=== PATIENT | male | born 1990 | race Caucasian/White ===

== ENCOUNTER 2018-02-08 16:04 | Emergency (ER) | payer OTHER, SELFPAY ==
--- NOTE | 2018-02-08 18:23 | RAD REPORT ---
EXAM DESCRIPTION: CT - Facial Bones W/ Mpr - 02/08/2018 5:59 pm CLINICAL HISTORY: Facial injury. Hit teeth on golf cart COMPARISON: None TECHNIQUE: Computed axial tomography of the face was obtained. Coronal and sagittal reconstruction w as performed. All CT scans are performed using dose optimization technique as appropriate and may include automated exposure control or mA/KV adjustment according to patient size. FINDINGS: Fractures involve the anterior wall of the alveolar process of the first and second right maxillary teeth. The teeth are dislodged anteriorly. The first right maxillary tooth is fractured A lucency within the first left maxillary tooth probably represents a cavity A TMJ dislocation is not noted. The globes are intact. Fluid within the sinuses is not seen. IMPRESSION: Fractures involve the anterior wall of the alveolar process of the first and second righ t maxillary teeth. The teeth are dislodged anteriorly. The first right maxillary tooth is fractured
--- NOTE | 2018-02-08 18:38 | ER ---
Nurse's Notes [facility] Name: Tyrone Wolf Age: 27 yrs Sex: Male : 1990 Arrival Date: 02/08/2018 Time: 16:07 Bed 23 Private MD: Diagnosis: Fractured alveolar ridge and teeth, facial trauma Presentation: 02/08 16:09 Presenting complaint: Patient states: i hit the back of a golf cart about 40 mins ago hj and knocked my front teeth; denies LOC; denies bleeding disorders;. Transition of care: patient was not received from another setting of care. Onset of symptoms was February 08, 2018. Care prior to arrival: None. 16:09 Method Of Arrival: Ambulatory 16:09 Acuity: SAHIL 4 hj Triage Assessment: 16:10 General: Appears in no apparent distress. uncomfortable, Behavior is calm, cooperative, hj appropriate for age. Pain: Complains of pain in mouth. Historical: - Allergies: 16:10 No Known Allergies; hj - Home Meds: 16:10 None [Active]; hj - PMHx: 16:10 None; hj - PSHx: 16:10 None; hj - Immunization history:: Adult Immunizations unknown. - Social history:: Smoking status: Patient/guardian denies using tobacco. Screenin:39 Abuse screen: Denies threats or abuse. Denies injuries from another. Nutritional kr2 screening: No deficits noted. Tuberculosis screening: No symptoms or risk factors identified. Fall Risk None identified. Assessment: 18:34 General: Appears in no apparent distress. uncomfortable, well groomed, well developed, kr2 well nourished, Behavior is calm, cooperative, appropriate for age. Pain: Complains of pain in mouth Pain does not radiate. Pain currently is 10 out of 10 on a pain scale. Quality of pain is described as aching, throbbing, Pain began suddenly, Is continuous, Alleviated by nothing. Neuro: Level of Consciousness is awake, alert, obeys commands, Oriented to person, place, time, situation, Appropriate for age Carpet Or Rug Layer Helper are equal bilaterally Moves all extremities. Gait is steady, Facial symmetry appears normal. Cardiovascular: Capillary refill < 3 seconds in bilateral fingers Patient's skin is warm and dry. Respiratory: Airway is patent Respiratory effort is even, unlabored, Respiratory pattern is regular, symmetrical. GI: Abdomen is flat, non-distended. : No signs and/or symptoms were reported regarding the genitourinary system. EENT: Nares are clear bilaterally broken teeth and deformities to front upper hard palate. Vital Signs: 16:10 BP 141 / 96; Pulse 78; Resp 18; Temp 96.7(TE); Pulse Ox 99% on R/A; Weight 108.86 kg; hj Height 5 ft. 10 in. (177.80 cm); 18:51 BP 136 / 74; Pulse 76; Resp 18; Pulse Ox 99% on R/A; kr2 16:10 Body Mass Index 34.44 (108.86 kg, 177.80 cm) ED Course: 16:07 Patient arrived in ED. mr 16:10 Triage completed. hj 16:10 Arm band placed on right wrist. hj 17:32 Carrie Strickland FNP-C [facility]. snw 17:32 Jennifer Shannon MD is Attending Physician. snw 17:57 CT completed. Patient moved to CT via wheelchair. Patient moved back from CT. cw1 18:15 Kourtney Nur, RN is Primary Nurse. kr2 18:40 Patient has correct armband on for positive identification. Bed in low position. Call kr2 light in reach. Side rails up X 1. Adult w/ patient. Pulse ox on. NIBP on. Door closed. Warm blanket given. Head of bed elevated. Administered Medications: 18:42 Drug: Tylenol #3 (300 mg-30 mg) 1 tablet Route: PO; kr2 18:42 Follow up: Response: Medication administered at discharge. kr2 18:42 Drug: Augmentin 875 mg Route: PO; kr2 18:42 Follow up: Response: Medication administered at discharge. kr2 Outcome: 18:38 Discharge ordered by . snw 18:51 Patient left the ED. kr2 Signatures: Carrie Strickland FNP-C FNP-Champ Ragini Lopez Crystal cw1 Albin Novoa RN RN Kourtney Nur, EDWARD RN kr2 Corrections: (The following items were deleted from the chart) 16:14 16:09 Presenting complaint: Patient states: i hit the back of a golf cart about 40 mins hj ago and knocked my front teeth; hj 16:14 16:09 Acuity: SAHIL 3 hj hj
--- NOTE | 2018-02-08 18:38 | EDPHYS ---
Physician Documentation [facility] Name: Tyrone Wolf Age: 27 yrs Sex: Male : 1990 Arrival Date: 02/08/2018 Time: 16:07 Bed 23 Private MD: ED Physician Jennifer Shannon HPI: 02/08 17:57 This 27 yrs old Male presents to ER via Ambulatory with complaints of Mouth snw Injury. 17:57 The patient presents with broken tooth/teeth. The problem is located in the upper right snw lateral incisor (#7) and upper right cuspid (#6) and upper right first bicuspid (#5). Onset: The symptoms/episode began/occurred suddenly, just prior to arrival. Duration: The symptoms are continuous, and are unchanged since they started. Associated signs and symptoms: The patient has no apparent associated signs or symptoms. Severity of symptoms: At their worst the symptoms were moderate. The patient has not experienced similar symptoms in the past. The patient has not recently seen a physician. Pt states he was pushing a golf cart out of the mud and his feet slipped. Pt fell face first into the cart striking his front teeth. Denies LOC. Denies pain anywhere. Noted gingiva continues to bleed. Historical: - Allergies: 16:10 No Known Allergies; hj - Home Meds: 16:10 None [Active]; hj - PMHx: 16:10 None; hj - PSHx: 16:10 None; hj - Immunization history:: Adult Immunizations unknown. - Social history:: Smoking status: Patient/guardian denies using tobacco. ROS: 17:45 Constitutional: Negative for fever, chills, and weight loss, Eyes: Negative for injury, snw pain, redness, and discharge, Neck: Negative for injury, pain, and swelling, Cardiovascular: Negative for chest pain, palpitations, and edema, Respiratory: Negative for shortness of breath, cough, wheezing, and pleuritic chest pain, Abdomen/GI: Negative for abdominal pain, nausea, vomiting, diarrhea, and constipation, Back: Negative for injury and pain, : Negative for injury, bleeding, discharge, and swelling, MS/Extremity: Negative for injury and deformity, Skin: Negative for injury, rash, and discoloration, Neuro: Negative for headache, weakness, numbness, tingling, and seizure. 17:45 ENT: Positive for dental pain, Teeth pain Exam: 17:42 Constitutional: This is a well developed, well nourished patient who is awake, alert, snw and in no acute distress. Head/Face: Normocephalic, atraumatic. Eyes: Pupils equal round and reactive to light, extra-ocular motions intact. Lids and lashes normal. Conjunctiva and sclera are non-icteric and not injected. Cornea within normal limits. Periorbital areas with no swelling, redness, or edema. Neck: Trachea midline, no thyromegaly or masses palpated, and no cervical lymphadenopathy. Supple, full range of motion without nuchal rigidity, or vertebral point tenderness. No Meningismus. Chest/axilla: Normal chest wall appearance and motion. Nontender with no deformity. No lesions are appreciated. Cardiovascular: Regular rate and rhythm with a normal S1 and S2. No gallops, murmurs, or rubs. Normal PMI, no JVD. No pulse deficits. Respiratory: Lungs have equal breath sounds bilaterally, clear to auscultation and percussion. No rales, rhonchi or wheezes noted. No increased work of breathing, no retractions or nasal flaring. Abdomen/GI: Soft, non-tender, with normal bowel sounds. No distension or tympany. No guarding or rebound. No evidence of tenderness throughout. Back: No spinal tenderness. No costovertebral tenderness. Full range of motion. Skin: Warm, dry with normal turgor. Normal color with no rashes, no lesions, and no evidence of cellulitis. MS/ Extremity: Pulses equal, no cyanosis. Neurovascular intact. Full, normal range of motion. Neuro: Awake and alert, GCS 15, oriented to person, place, time, and situation. Cranial nerves II-XII grossly intact. Motor strength 5/5 in all extremities. Sensory grossly intact. Cerebellar exam normal. Normal gait. 17:42 ENT: External ear(s): are unremarkable, Ear canal(s): are normal, TM's: are normal, Nose: is normal, Mouth: Gums: reddened, fracture suspected to right upper maxilla between incisor and canine teeth, teeth x 3 pushed up into gingival area, prominent dental decay throughout, Dental exam: gum swelling, that is moderate, specifically in the upper right first bicuspid (#5), upper right cuspid (#6) and upper right lateral incisor (#7), as noted, Voice: is normal. Vital Signs: 16:10 BP 141 / 96; Pulse 78; Resp 18; Temp 96.7(TE); Pulse Ox 99% on R/A; Weight 108.86 kg; hj Height 5 ft. 10 in. (177.80 cm); 18:51 BP 136 / 74; Pulse 76; Resp 18; Pulse Ox 99% on R/A; kr2 16:10 Body Mass Index 34.44 (108.86 kg, 177.80 cm) hj MDM: 17:37 Patient medically screened. snw 19:29 Data reviewed: vital signs, nurses notes. Data interpreted: Pulse oximetry: on room air snw is 99 %. Interpretation: normal. Counseling: I had a detailed discussion with the patient and/or guardian regarding: the historical points, exam findings, and any diagnostic results supporting the discharge/admit diagnosis, the presence of at least one elevated blood pressure reading (>120/80) during this emergency department visit, radiology results, the need for outpatient follow up, to return to the emergency department if symptoms worsen or persist or if there are any questions or concerns that arise at home, smoking cessation. Special discussion: I have referred the patient to see his PCP for further evaluation of high blood pressure. Based on the history and exam findings, there is no indication for further emergent testing or inpatient evaluation. I discussed with the patient/guardian the need to see a dentist for further evaluation of the symptoms. I discussed with the patient/guardian the need to see the oral maxillofacial surgeon for further evaluation of the symptoms. I discussed with the patient/guardian the need to see the primary care provider for further evaluation of the symptoms. 02/08 17:41 Order name: CT Facial Bones W/O Con snw 02/08 18:24 Order name: CT; Complete Time: 18:36 EDMS Administered Medications: 18:42 Drug: Tylenol #3 (300 mg-30 mg) 1 tablet Route: PO; kr2 18:42 Follow up: Response: Medication administered at discharge. kr2 18:42 Drug: Augmentin 875 mg Route: PO; kr2 18:42 Follow up: Response: Medication administered at discharge. kr2 Disposition: 18:05 Co-signature as Attending Physician, Jennifer Shannon MD. ma2 Disposition: 02/08/18 18:38 Discharged to Home. Impression: Fractured alveolar ridge and teeth, facial trauma. - Condition is Stable. - Discharge Instructions: Dental Injury, Clear Liquid Diet, Tooth Fracture, Tooth Injuries, Tooth Displacement. - Prescriptions for Augmentin 500- 125 mg Oral Tablet - take 1 tablet by ORAL route every 8 hours for 10 days; 30 tablet. Tylenol- Codeine #3 300-30 mg Oral Tablet - take 2 tablets by ORAL route every 6 hours As needed; 20 tablet. - Medication Reconciliation Form, Thank You Letter, Antibiotic Education, Prescription Opioid Use form. - Follow up: Private Physician; When: 1 - 2 days; Reason: Recheck today's complaints, Continuance of care, Re-evaluation by your physician. Follow up: Emergency Department; When: As needed; Reason: Worsening of condition. - Notes: No chew diet until cleared by dental surgery. Signatures: Dispatcher [employer] EDCarrie Izaguirre, LIZZIE-C SENIOR INTERACTION DESIGNER-Csnw Albin Novoa, RN RN Kourtney Conway RN RN kr2 Jennifer Shannon MD MD ma2
[2018-02-08] MEDS ORDERED: CODEINE 30MG/APAP 300MG TAB ONE (18:48)
[2018-02-08] MEDS ORDERED: AMOX/K CLAV 875 MG TAB ONE (18:48)
== END 2018-02-08 18:51 | disposition home or self-care (01) ==
LOC: ER 16:04
DX: S02.5XXA Fracture of tooth (traumatic), initial encounter for closed fracture (principal); S02.670A Fracture of alveolus of mandible, unspecified side, initial encounter for closed fracture; W01.198A Fall on same level from slipping, tripping and stumbling with subsequent striking against other object, initial encounter; Y93.89 Activity, other specified; Y92.89 Other specified places as the place of occurrence of the external cause
CPT/HCPCS: 70486; 76377; 99284